=== PATIENT | female | born 1975 | race Caucasian/White ===

== ENCOUNTER 2023-05-09 08:02 | Day surgery (SDC) | payer OTHER ==
[~2023-05-09 08:02] MED LIST: Lactated Ringers 1,000 ML IV SCH; Midazolam 1 MG/ML 2 ML SDV ONE; Propofol 200 MG/20 ML SDV ONE; fentaNYL 100 MCG/2 ML SDV ONE
[2023-05-09] MEDS ORDERED: Ondansetron 4 MG/2 ML SDV ONE (09:41)
[2023-05-09] MEDS ORDERED: Propofol 200 MG/20 ML SDV ONE (09:51)
== END 2023-05-09 11:04 | disposition home or self-care (01) ==
LOC: JP.SDS 08:02
PROVIDERS: ATTEND Student in an Organized Health Care Education/Training Program
DX: Z12.11 Encounter for screening for malignant neoplasm of colon (principal); D12.0 Benign neoplasm of cecum; K57.30 Diverticulosis of large intestine without perforation or abscess without bleeding; Z91.013 Allergy to seafood
CPT/HCPCS: 45380; 88305; J2250; J2405; J2704; J3010; J7120